=== PATIENT | female | born 1950 | race Caucasian/White ===

== ENCOUNTER → 2020-01-29 | Outpatient (CLI) | payer MEDICARE ==
[2020-01-29 19:47] LABS: Protein, Total 7.1 g/dL (6.2-8.2)
[2020-01-29 20:21] LABS: Folate, Serum >24.0 ng/mL
[2020-01-30 06:10] LABS: Herpes simplex I and/or II IgM 0.54 INDEX (<=0.90); Herpes simplex IgG II Ab 7.18 (< or = 0.90)
[2020-01-30 12:01] LABS: Albumin 4.52 g/dL (3.80-4.90); Gamma Globulin 0.81 g/dL (0.70-1.50)
[2020-01-30 15:08] LABS: Zinc, Serum 74 ug/dL (60-130)
== END | disposition home or self-care (01) ==
LOC: LABWHC1 12:47
PROVIDERS: ATTEND Otolaryngology
DX: J30.89 Other allergic rhinitis (principal); K13.79 Other lesions of oral mucosa; M25.50 Pain in unspecified joint; R53.83 Other fatigue; K21.0 Gastro-esophageal reflux disease with esophagitis
CPT/HCPCS: 36415; 82306; 82607; 82746; 83516; 84165; 84207; 84630; 86618; 86694; 86695; 86696